=== PATIENT | female | born 1985 | race Caucasian/White ===

== ENCOUNTER → 2016-05-20 | Outpatient (CLI) | payer MEDICARE, MEDICAID ==
[~2016-05-20] MED LIST: DOXY-231 PO; ESTA1TAB PO; METR500T17 PO; OXYC1TAB87 PO; TOPI25TA36 PO; TRAZ-28 PO
[2016-05-20 11:09] LABS: MEAN CORPUSCULAR HEMOGLOBIN 30.1 PG (26.0-34.0); MEAN CORPUSCULAR HGB CONC 33.5 g/dL (31.0-37.0); WHITE BLOOD COUNT 12.05 10^3uL (4.0-11.0)
[2016-05-20 11:52] LABS: ALBUMIN 4.4 g/dL (3.4-5.0); ANION GAP 18.3 MEQ/L (3-15); TOTAL PROTEIN 7.6 g/dL (6.4-8.5)
== END ==
LOC: LAB 10:57
PROVIDERS: ATTEND Internal Medicine Rheumatology
DX: M06.4 Inflammatory polyarthropathy (principal); M79.7 Fibromyalgia
CPT/HCPCS: 36415; 80053; 85027; 85652; 86140

== ENCOUNTER → 2016-08-28 | Outpatient (CLI) | payer MEDICARE, MEDICAID ==
[2016-08-28 12:01] LABS: MEAN CORPUSCULAR HEMOGLOBIN 29.2 PG (26.0-34.0); MEAN CORPUSCULAR HGB CONC 33.8 g/dL (31.0-37.0); MEAN PLATELET VOLUME 9.5 FL (6.0-9.5); WHITE BLOOD COUNT 10.38 10^3uL (4.0-11.0)
[2016-08-28 12:13] LABS: ALBUMIN 4.4 g/dL (3.4-5.0); ANION GAP 16.7 MEQ/L (3-15); CALCULATED IONIZED CALCIUM 3.8 mg/dL (3.8-4.6); TOTAL PROTEIN 8.1 g/dL (6.4-8.5)
== END ==
LOC: LAB 11:36
PROVIDERS: ATTEND Internal Medicine Rheumatology
DX: M06.4 Inflammatory polyarthropathy (principal); M79.7 Fibromyalgia
CPT/HCPCS: 36415; 80053; 85027; 85652; 86140

== ENCOUNTER 2016-09-03 21:19 | Emergency (ER) | payer MEDICARE, MEDICAID ==
[~2016-09-03] VITALS: Ht 157.5 cm; Wt 89.5 kg
[2016-09-03] MEDS ORDERED: MEPERIDINE 50 MG/ML (DEMEROL) SYRINGE IM ONE (21:45)
[2016-09-03] MEDS ORDERED: PROMETHAZINE 25 MG/ML (PHENERGAN) 1 ML VIAL IM ONE (21:45)
[2016-09-03] MEDS ORDERED: MEPERIDINE 25 MG/ML (DEMEROL) SYRINGE IM ONE (22:50)
[2016-09-04 03:05] VITALS: BP 121/73
== END 2016-09-03 23:50 | disposition home or self-care (01) ==
LOC: ED 21:20
DX: G43.909 Migraine, unspecified, not intractable, without status migrainosus (principal)
CPT/HCPCS: 96372; 99282; J2175; J2550